=== PATIENT | male | born 1930 | race Caucasian/White ===

== ENCOUNTER 2018-01-04 02:33 | Emergency (ER) | payer MEDICARE, OTHER ==
--- NOTE | 2018-01-04 02:43 | EDM.PDOC ---
ED HPI GENERAL MEDICAL PROBLEM - General Chief Complaint: Chest Pain Stated Complaint: HEART ATTACK? [id number] Time Seen by Provider: 01/04/18 02:40 Source of Information: Reports: Patient History Limitations: Reports: No Limitations - History of Present Illness INITIAL COMMENTS - FREE TEXT/NARRATIVE: thinks he's having heart attack, took NTG feels better, had stents few years ago in [place]. pain started few hours ago he thinks. states pain came back and took another NTG felt better then started having hot flashes that got worse. so decided to come here. right now still has slight pain but much better. - Related Data Allergies Allergy/AdvReac Type Severity Reaction Status Date / Time tiotropium bromide Allergy Cannot Verified 01/04/18 02:46 [From Spiriva with Remember HandiHaler] Home Meds: Home Meds Aspirin [Ecotrin] 1 tab PO DAILY 07/18/15 [History] Fluticasone/Salmeterol [Advair 250-50] 1 cap INH BID 07/18/15 [History] Glimepiride 2 mg PO DAILY 07/18/15 [History] Insulin Glargine,Hum.Rec.Anlog [Lantus Solostar] 10 unit SQ DAILY 07/18/15 [ History] Lisinopril [Prinivil] 1 tab PO DAILY 07/18/15 [History] Multivitamin with Minerals [Multiple Vitamin] 1 tab PO DAILY 07/18/15 [History] NIFEdipine [Procardia XL] 1 tab PO DAILY 07/18/15 [History] Nitroglycerin [Nitrostat] 1 tab SL ASDIRECTED 07/18/15 [History] Ranitidine [Zantac] 1 tab PO DAILY 07/18/15 [History] Simvastatin [Zocor] 1 tab PO DAILY 07/18/15 [History] Terazosin [Hytrin] 1 tab PO DAILY 07/18/15 [History] metFORMIN [Glucophage] 1 tab PO WITHDINNER 07/18/15 [History] metFORMIN [Glucophage] 2 tab PO ACBREAKFAST 07/18/15 [History] Past Medical History HEENT History: Reports: Cataract Cardiovascular History: Reports: High Cholesterol, Hypertension, SOB on Exertion , Stents Other Cardiovascular History: 4-stents Respiratory History: Reports: SOB Gastrointestinal History: Reports: GERD, Hemorrhoids Genitourinary History: Reports: BPH, Retention, Urinary Other Genitourinary History: urinary retention,BPH Musculoskeletal History: Reports: Back Pain, Chronic, Fracture Other Musculoskeletal History: right knee pain, spinal stenosis Endocrine/Metabolic History: Reports: Diabetes, Type II, Obesity/BMI 30+ - Past Surgical History HEENT Surgical History: Reports: Laser Surgery, Tonsillectomy Musculoskeletal Surgical History: Reports: Knee Replacement Social & Family History - Family History Family Medical History: Noncontributory Cardiac: Reports: CAD - Tobacco Use Smoking Status *Q: Former Smoker Years of Tobacco use: 40 Packs/Tins Daily: 1 Second Hand Smoke Exposure: No - Caffeine Use Caffeine Use: Reports: Coffee Other Caffeine Use: 1 big cup - Recreational Drug Use Recreational Drug Use: No - Living Situation & Occupation Living situation: Reports: Alone Occupation: Retired ED ROS GENERAL - Review of Systems Review Of Systems: ROS reveals no pertinent complaints other than HPI. ED EXAM, GENERAL - Physical Exam Exam: See Below Exam Limited By: No Limitations General Appearance: Alert, WD/WN, Anxious, Mild Distress Ears: Hearing Grossly Normal Throat/Mouth: Normal Voice, No Airway Compromise Head: Atraumatic Neck: Non-Tender, Full Range of Motion Respiratory/Chest: No Respiratory Distress Cardiovascular: Regular Rate, Rhythm GI/Abdominal: Soft, Non-Tender Neurological: Alert, Oriented, Normal Cognition, Normal Gait, No Motor/Sensory Deficits Psychiatric: Anxious Skin Exam: Warm, Dry, Normal Color Lymphatic: No Adenopathy Course - Vital Signs Last Recorded V/S: Last Vital Signs Temp 36.1 C 01/04/18 04:15 Pulse 76 01/04/18 04:06 Resp 19 01/04/18 02:38 BP 109/88 01/04/18 04:06 Pulse Ox 94 L 01/04/18 04:06 - Orders/Labs/Meds Orders: Active Orders 24 hr Category Date Time Status EKG 12 Lead [EKG Documentation Completion] [RC] STAT Care 01/04/18 02:39 Active Labs: Laboratory Tests 01/04/18 01/04/18 Range/Units 02:40 02:40 WBC 7.9 (5.0-10.0) 10^3/uL RBC 4.69 (4.6-6.2) 10^6/uL Hgb 14.7 D (14.0-18.0) g/dL Hct 42.3 (40.0-54.0) % MCV 90.2 (80-100) fL MCH 31.3 (27.0-34.0) pg MCHC 34.8 (33.0-35.0) g/dL Plt Count 133 L (150-450) 10^3/uL Neut % (Auto) 48.0 (42.2-75.2) % Lymph % (Auto) 40.1 (20.5-50.1) % [place] % (Auto) 9.3 H (2-8) % Eos % (Auto) 2.5 (1.0-3.0) % Baso % (Auto) 0.1 (0.0-1.0) % Sodium 136 (135-145) mmol/L Potassium 4.0 (3.6-5.0) mmol/L Chloride 106 (101-111) mmol/L Carbon Dioxide 23.0 (21.0-31.0) mmol/L Anion Gap 11.0 BUN 32 H (7-18) mg/dL Creatinine 1.0 (0.6-1.3) mg/dL Est Cr Clr Drug Dosing 52.72 mL/min Estimated GFR (MDRD) > 60 BUN/Creatinine Ratio 32.00 Glucose 187 H (74-105) mg/dL Calcium 9.2 (8.4-10.2) mg/dl Total Bilirubin 0.9 (0.2-1.0) mg/dL AST 27 (10-42) IU/L ALT 25 (10-60) IU/L Alkaline Phosphatase 64 (42-121) IU/L Troponin I 0.02 (0.00-0.02) ng/ml Total Protein 6.1 L (6.7-8.2) g/dl Albumin 3.8 (3.2-5.5) g/dl Globulin 2.3 Albumin/Globulin Ratio 1.65 - Re-Assessments/Exams Free Text/Narrative Re-Assessment/Exam: 01/04/18 03:50 re-exam; states pain free right now and no longer hot and sweating. 01/04/18 04:07 re-exam; still feels good without pain or sensation of hot & sweaty. Departure - Departure Time of Disposition: 04:10 Disposition: Home, Self-Care 01 Condition: Good Clinical Impression: Angina at rest Instructions: Angina Pectoris, [id number] Forms: ED Department Discharge Additional Instructions: 1) rest 2) follow up with family doctor as soon as possible for thryoid check 3) return if there is any change or concern - My Orders Last 24 Hours: My Active Orders 01/04/18 02:39 EKG 12 Lead [EKG Documentation Completion] [RC] STAT - Assessment/Plan Last 24 Hours: My Active Orders 01/04/18 02:39 EKG 12 Lead [EKG Documentation Completion] [RC] STAT
[2018-01-04 03:10] LABS: CHLORIDE,CL 106 mmol/L (101-111); SODIUM,NA 136 mmol/L (135-145)
[2018-01-04 04:07] VITALS: BP 109/88
--- NOTE | 2018-01-05 13:18 | EKG ---
01/04/2018- LISET GALVIN - FINDINGS: EKG, per my reading, shows sinus rhythm with right bundle-branch block at the rate of 80. [facility] /[id number]
== END 2018-01-04 04:17 | disposition home or self-care (01) ==
LOC: DL.ED 02:33
DX: I20.9 Angina pectoris, unspecified (principal); E78.00 Pure hypercholesterolemia, unspecified; I10 Essential (primary) hypertension; E11.9 Type 2 diabetes mellitus without complications; Z88.8 Allergy status to other drugs, medicaments and biological substances; Z79.82 Long term (current) use of aspirin; Z79.4 Long term (current) use of insulin; Z79.899 Other long term (current) drug therapy; Z87.891 Personal history of nicotine dependence
CPT/HCPCS: 36415; 71045; 80053; 84484; 85025; 93005; 93010; 99285

== ENCOUNTER → 2018-12-17 | Outpatient (CLI) | payer MEDICARE, OTHER ==
[~2018-12-17] MED LIST: Barium Sulfate w/v 2.1% Oral Susp 450 ML Bottle PO ONE; Iopamidol 612 MG/ML 100 ML Bottle IVPUSH ONE
== END ==
LOC: DL.CT 10:33
PROVIDERS: ATTEND Internal Medicine
DX: R10.9 Unspecified abdominal pain (principal); R91.1 Solitary pulmonary nodule; I31.3 Pericardial effusion (noninflammatory); E27.8 Other specified disorders of adrenal gland; N28.89 Other specified disorders of kidney and ureter; N40.0 Benign prostatic hyperplasia without lower urinary tract symptoms; K57.30 Diverticulosis of large intestine without perforation or abscess without bleeding; K42.9 Umbilical hernia without obstruction or gangrene
CPT/HCPCS: 74177; Q9967

== ENCOUNTER 2019-07-09 22:05 | Emergency (ER) | payer MEDICARE, OTHER ==
--- NOTE | 2019-07-09 22:16 | EDM.PDOC ---
ED HPI GENERAL MEDICAL PROBLEM - General Chief Complaint: Respiratory Problem Stated Complaint: sob Time Seen by Provider: 07/09/19 22:14 Source of Information: Reports: Patient History Limitations: Reports: No Limitations - History of Present Illness INITIAL COMMENTS - FREE TEXT/NARRATIVE: sudden onset SOB with light headed & dizzy while watching TV world series. denies chest pain now but does get them now and then. states does feel things are spinning around but no nausea. - Related Data Allergies Allergy/AdvReac Type Severity Reaction Status Date / Time tiotropium bromide Allergy Cannot Verified 07/09/19 22:09 [From Spiriva with Remember [facility]iHaler] Home Meds: Home Meds Aspirin [Ecotrin EC] 1 tab PO DAILY 07/18/15 [History] Fluticasone/Salmeterol [Advair 250-50] 1 cap INH BID 07/18/15 [History] Glimepiride 2 mg PO DAILY 07/18/15 [History] Insulin Glargine,Hum.Rec.Anlog [Lantus Solostar] 10 unit SQ DAILY 07/18/15 [ History] Lisinopril [Prinivil] 1 tab PO DAILY 07/18/15 [History] Multivitamin with Minerals [Multiple Vitamin] 1 tab PO DAILY 07/18/15 [History] NIFEdipine [Procardia XL] 1 tab PO DAILY 07/18/15 [History] Nitroglycerin [Nitrostat] 1 tab SL ASDIRECTED 07/18/15 [History] Ranitidine [Zantac] 1 tab PO DAILY 07/18/15 [History] Simvastatin [Zocor] 1 tab PO DAILY 07/18/15 [History] Terazosin [Hytrin] 1 tab PO DAILY 07/18/15 [History] metFORMIN [Glucophage] 1 tab PO WITHDINNER 07/18/15 [History] metFORMIN [Glucophage] 2 tab PO ACBREAKFAST 07/18/15 [History] Past Medical History HEENT History: Reports: Cataract Cardiovascular History: Reports: High Cholesterol, Hypertension, SOB on Exertion , Stents Other Cardiovascular History: 4-stents Respiratory History: Reports: SOB Gastrointestinal History: Reports: GERD, Hemorrhoids Genitourinary History: Reports: BPH, Retention, Urinary Other Genitourinary History: urinary retention,BPH Musculoskeletal History: Reports: Back Pain, Chronic, Fracture Other Musculoskeletal History: right knee pain, spinal stenosis Endocrine/Metabolic History: Reports: Diabetes, Type II, Obesity/BMI 30+ - Past Surgical History HEENT Surgical History: Reports: Laser Surgery, Tonsillectomy Musculoskeletal Surgical History: Reports: Knee Replacement Social & Family History - Family History Family Medical History: Noncontributory Cardiac: Reports: CAD - Tobacco Use Smoking Status *Q: Former Smoker Used Tobacco, but Quit: Yes Month/Year Tobacco Last Used: 30 years - Caffeine Use Caffeine Use: Reports: Coffee Other Caffeine Use: 1 big cup - Recreational Drug Use Recreational Drug Use: No - Living Situation & Occupation Living situation: Reports: Alone Occupation: Retired ED ROS GENERAL - Review of Systems Review Of Systems: ROS reveals no pertinent complaints other than HPI. ED EXAM, GENERAL - Physical Exam Exam: See Below Exam Limited By: No Limitations General Appearance: Alert, WD/WN, Anxious, Mild Distress, Other (sob) Ears: Hearing Grossly Normal Throat/Mouth: Normal Voice, No Airway Compromise Head: Atraumatic Neck: Non-Tender, Full Range of Motion Respiratory/Chest: Rhonchi. No: Decreased Breath Sounds Cardiovascular: Regular Rate, Rhythm GI/Abdominal: Soft, Non-Tender Neurological: Alert, Oriented, Normal Cognition, Normal Gait, No Motor/Sensory Deficits Psychiatric: Normal Affect, Normal Mood Skin Exam: Warm, Dry, Normal Color Lymphatic: No Adenopathy Course - Vital Signs Last Recorded V/S: Last Vital Signs Temp 36.8 C 07/09/19 22:09 Pulse 81 07/09/19 22:23 Resp 24 H 07/09/19 22:23 BP 126/55 L 07/09/19 22:23 Pulse Ox 99 07/09/19 22:23 - Orders/Labs/Meds Orders: Active Orders 24 hr Category Date Time Status EKG Documentation Completion [RC] STAT Care 07/09/19 22:13 Active Labs: Laboratory Tests 07/09/19 07/09/19 07/09/19 Range/Units 22:11 22:11 22:11 WBC 9.6 (5.0-10.0) 10^3/uL RBC 5.17 (4.6-6.2) 10^6/uL Hgb 16.1 (14.0-18.0) g/dL Hct 44.6 (40.0-54.0) % MCV 86.3 D (80-100) fL MCH 31.1 (27.0-34.0) pg MCHC 36.1 H (33.0-35.0) g/dL Plt Count 153 (150-450) 10^3/uL Neut % (Auto) 48.2 (42.2-75.2) % Lymph % (Auto) 42.4 (20.5-50.1) % [place] % (Auto) 7.5 (2-8) % Eos % (Auto) 1.7 (1.0-3.0) % Baso % (Auto) 0.2 (0.0-1.0) % D-Dimer, Quantitative 357 (0-400) ng/mL Sodium 135 (135-145) mmol/L Potassium 3.7 (3.6-5.0) mmol/L Chloride 101 (101-111) mmol/L Carbon Dioxide 20.0 L (21.0-31.0) mmol/L Anion Gap 17.7 BUN 40 H (7-18) mg/dL Creatinine 1.2 (0.6-1.3) mg/dL Est Cr Clr Drug Dosing 43.09 mL/min Estimated GFR (MDRD) 57 BUN/Creatinine Ratio 33.33 Glucose 263 H (74-105) mg/dL Lactic Acid (0.5-2.2) mmol/L Calcium 9.1 (8.4-10.2) mg/dl Total Bilirubin 1.4 H (0.2-1.0) mg/dL AST 37 (10-42) IU/L ALT 37 (10-60) IU/L Alkaline Phosphatase 65 (42-121) IU/L Troponin I 0.02 (0.00-0.02) ng/ml B-Natriuretic Peptide 28 (0-100) pg/ml Total Protein 6.8 (6.7-8.2) g/dl Albumin 4.0 (3.2-5.5) g/dl Globulin 2.8 Albumin/Globulin Ratio 1.43 07/09/ Range/Units 22:11 WBC (5.0-10.0) 10^3/uL RBC (4.6-6.2) 10^6/uL Hgb (14.0-18.0) g/dL Hct (40.0-54.0) % MCV (80-100) fL MCH (27.0-34.0) pg MCHC (33.0-35.0) g/dL Plt Count (150-450) 10^3/uL Neut % (Auto) (42.2-75.2) % Lymph % (Auto) (20.5-50.1) % [place] % (Auto) (2-8) % Eos % (Auto) (1.0-3.0) % Baso % (Auto) (0.0-1.0) % D-Dimer, Quantitative (0-400) ng/mL Sodium (135-145) mmol/L Potassium (3.6-5.0) mmol/L Chloride (101-111) mmol/L Carbon Dioxide (21.0-31.0) mmol/L Anion Gap BUN (7-18) mg/dL Creatinine (0.6-1.3) mg/dL Est Cr Clr Drug Dosing mL/min Estimated GFR (MDRD) BUN/Creatinine Ratio Glucose (74-105) mg/dL Lactic Acid 4.0 H (0.5-2.2) mmol/L Calcium (8.4-10.2) mg/dl Total Bilirubin (0.2-1.0) mg/dL AST (10-42) IU/L ALT (10-60) IU/L Alkaline Phosphatase (42-121) IU/L Troponin I (0.00-0.02) ng/ml B-Natriuretic Peptide (0-100) pg/ml Total Protein (6.7-8.2) g/dl Albumin (3.2-5.5) g/dl Globulin Albumin/Globulin Ratio Meds: Medications Discontinued Medications Generic Name Dose Route Start Last Admin Trade Name Freq PRN Reason Stop Dose Admin Meclizine HCl 12.5 mg 07/09/19 22:21 07/09/19 22:27 Antivert PO 07/09/19 22:22 12.5 mg ONETIME ONE Administration - Re-Assessments/Exams Free Text/Narrative Re-Assessment/Exam: 07/09/19 22:56 re-exam; no further dizziness after the pill, SOB much better now. still has no chest pain. 07/10/19 00:03 results discussed with pt who remians feeling fine. Departure - Departure Time of Disposition: 00:04 Disposition: Home, Self-Care 01 Condition: Good Clinical Impression: Vertigo - Discharge Information Instructions: Vertigo, [id number] Forms: ED Department Discharge Additional Instructions: 1) rest and avoid vigorous activity 2) take MECLIZINE form [facility] 3) recheck if there is any change or concern - My Orders Last 24 Hours: My Active Orders 07/09/19 22:13 EKG Documentation Completion [RC] STAT - Assessment/Plan Last 24 Hours: My Active Orders 07/09/19 22:13 EKG Documentation Completion [RC] STAT
[2019-07-09] MEDS ORDERED: Meclizine 12.5 MG Tab PO ONE (22:21)
[2019-07-09 22:24] VITALS: BP 126/55; PULSE 81
[2019-07-09 22:38] LABS: ANION GAP 17.7
== END 2019-07-10 00:10 | disposition home or self-care (01) ==
LOC: DL.ED 22:05
DX: R42 Dizziness and giddiness (principal); E78.5 Hyperlipidemia, unspecified; K21.9 Gastro-esophageal reflux disease without esophagitis; I10 Essential (primary) hypertension; E11.9 Type 2 diabetes mellitus without complications; E66.9 Obesity, unspecified; Z88.8 Allergy status to other drugs, medicaments and biological substances; Z79.82 Long term (current) use of aspirin; Z79.899 Other long term (current) drug therapy; Z79.4 Long term (current) use of insulin; Z68.28 Body mass index [BMI] 28.0-28.9, adult; Z87.891 Personal history of nicotine dependence
CPT/HCPCS: 36415; 71045; 80053; 83605; 83880; 84484; 85025; 85379; 93005; 99283; A9270